=== PATIENT | female | born 1990 | race African-American/Black ===

== ENCOUNTER 2016-10-24 10:31 | Emergency (ER) | payer OTHER ==
[2016-10-24 10:42] VITALS: BMI 31.3
[2016-10-24] MEDS ORDERED: FLUORESCEIN NA 1 EA STRIP ONE (11:06)
[2016-10-24] MEDS ORDERED: TETRACAINE 0.5% OPHTH SOLN 2 ML BOTTLE ONE (11:07)
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
[2016-10-24] MEDS ORDERED: ACETAMINOPHEN 325 MG TABLET (FP) ONE (11:55)
[2016-10-24 13:14] LABS: HIV 1 & 2 AB NEGATIVE; HIV 1 AGp24 NEGATIVE
[2016-10-24 14:21] VITALS: BP 132/78; PULSE 72; TEMP 98.2
== END 2016-10-24 14:21 | disposition home or self-care (01) ==
LOC: JER 10:31 → JERFT 10:31 → JER 14:21
DX: S09.8XXA Other specified injuries of head, initial encounter (principal); S05.12XA Contusion of eyeball and orbital tissues, left eye, initial encounter; H11.32 Conjunctival hemorrhage, left eye; Y04.2XXA Assault by strike against or bumped into by another person, initial encounter; Y93.89 Activity, other specified; Y92.038 Other place in apartment as the place of occurrence of the external cause; Y07.03 Male partner, perpetrator of maltreatment and neglect
CPT/HCPCS: 36415; 70450-TC; 70486-TC; 84703; 87389; 87491; 87591; 99283-25

== ENCOUNTER 2017-04-10 10:28 | Inpatient (IN) | payer SELFPAY ==
--- NOTE | 2017-04-10 10:40 | PDOC ---
History of Present Illness - General History Source: Patient Exam Limitations: No Limitations - History of Present Illness Initial Comments: CHIEF COMPLAINT: 27 y/o , unknown if currently BIB EMS c/o vaginal bleeding and strong abdominal cramping since this morning. HISTORY OF PRESENT ILLNESS: The patient admits she has very irregular periods, and states her period hasn't been "normal" for at least 1 year. She states that she did not have a menstrual cycle in February but did have 3 days of spotting in March. She took a test in late February which came back negative. She states she has never carried a to term with her last 2 being delivered at 6 months gestation. She states this morning she woke up with some abdominal pain that feels like contractions. At some point she stood up and felt a "gush" of liquid discharge. She states she has passed multiple clots and is having pain about every 5 minutes. She denies f/c, n/v/d, CP, SOB, hematuria, dysuria. Vital signs on arrival are within normal limits. REVIEW OF SYSTEMS: GENERAL/CONSTITUTIONAL: No fever/chills. No weakness. No weight change. HEAD, EYES, EARS, NOSE AND THROAT: No change in vision. No ear pain or discharge. No sore throat. CARDIOVASCULAR: No chest pain or shortness of breath. RESPIRATORY: No cough, wheezing, or hemoptysis. GASTROINTESTINAL: +abdominal pain. No nausea, vomiting, diarrhea. +vaginal discharge. GENITOURINARY: No dysuria, frequency, or change in urination. MUSCULOSKELETAL: No joint or muscle swelling or pain. No neck or back pain. SKIN: No rash or easy bruising. NEUROLOGIC: No headache, vertigo, loss of consciousness, or loss of sensation. PHYSICAL EXAM: GENERAL: The patient is awake, alert, and fully oriented, in intermittent pain. HEAD: Normal with no signs of trauma. ENT: Pupils equal, round and reactive to light, extraocular movements intact, sclera anicteric, conjunctiva clear. Neck supple. LUNGS: Clear to auscultation bilaterally. Normal excursion. No respiratory distress or use of accessory muscles. CV: RRR, S1/S2, no MRG. Cap refill < 2 sec. ABDOMEN: Soft, obese, TTP of lower abdominal and pelvic region. No rebound, guarding or rigidity. VAGINAL: Copious blood in the vaginal vault with active passage of 3 very large clots. Os cannot be visualized secondary to blood. There is clear liquid discharge on the floor and around the patient. EXTREMITIES: Normal range of motion, no edema. NEUROLOGICAL: Normal speech, normal gait. CN II-XII grossly intact. PSYCH: Normal mood, normal affect. SKIN: Warm, dry, normal turgor, no rashes or lesions noted. <Janae Medeiros - Last Filed: 04/10/17 17:54> <Siobhan Noe - Last Filed: 04/16/17 11:41> - General Chief Complaint: Pain Stated Complaint: PAIN Time Seen by Provider: 04/10/17 10:34 Past History - Past Medical History Anemia: Yes Asthma: No Cancer: No Cardiac Disorders: No Diabetes: No HTN: No Suicide Attempt (Hx): No Seizures: No Thyroid Disease: No - Reproductive History (#): 4 Para: 4 Therapeutic (s) & number: No Spontaneous : 0 - Immunization History Immunization Up to Date: Yes - Psycho/Social/Smoking Cessation Hx Anxiety: No Suicidal Ideation: No Smoking History: Current some day smoker Have you smoked in the past 12 months: Yes Number of Cigarettes Smoked Daily: 5 Hx Alcohol Use: No Drug/Substance Use Hx: No Substance Use Type: None Hx Substance Use Treatment: No <Janae Medeiros - Last Filed: 04/10/17 17:54> <Siobhan Noe - Last Filed: 04/16/17 11:41> - Past Medical History Allergies/Adverse Reactions: Allergies Allergy/AdvReac Type Severity Reaction Status Date / Time ibuprofen Allergy Intermediate Swelling Verified 10/24/16 10:35 peach [[place]] Allergy Intermediate Difficulty Verified 10/24/16 10:35 Breathing peanut Allergy Intermediate Swelling Verified 10/24/16 10:35 Home Medications: Ambulatory Orders NK [No Known Home Medication] 04/10/17 Amoxicillin/Potassium Clav [Augmentin 875-125 Tablet] 1 each PO BID #0 tablet *Physical Exam - Vital Signs Last Vital Signs Temp Pulse Resp BP Pulse Ox 97.7 F 69 20 136/85 99 04/14/17 10:00 04/14/17 10:00 04/14/17 10:00 04/14/17 10:00 04/14/17 09:00 <Siobhan Noe - Last Filed: 04/16/17 11:41> ED Treatment Course - LABORATORY CBC & Chemistry Diagram: 04/10/17 11:05 04/10/17 11:05 <IsiJanae lara - Last Filed: 04/10/17 17:54> - LABORATORY CBC & Chemistry Diagram: 04/14/17 10:30 04/10/17 11:05 - ADDITIONAL ORDERS Additional order review: 04/10/17 11:05 RBC 3.63 MCV 83.5 MCHC 31.6 L RDW 20.2 H D MPV 8.5 Neutrophils % 79.0 D Lymphocytes % 17.0 D Monocytes % 4.0 - Medications Given in the ED: ED Medications Discontinued Medications Generic Name Dose Route Start Last Admin Trade Name Freq PRN Reason Stop Dose Admin Acetaminophen 1,000 mg 04/10/17 13:38 04/10/17 13:48 Ofirmev Injection - IVPB 04/10/17 13:39 1,000 mg ONCE ONE Administration Acetaminophen 1,000 mg 04/10/17 18:35 04/10/17 19:09 Ofirmev Injection - IVPB 04/10/17 18:36 1,000 mg ONCE ONE Administration Acetaminophen 650 mg 04/10/17 19:25 04/14/17 08:21 Tylenol - PO 650 mg Q3H PRN Administration PAIN Citric Acid/Sodium Citrate 30 ml 04/14/17 08:56 04/14/17 09:26 Bicitra Oral Solution - PO 04/14/17 08:57 30 ml ONCE ONE Administration Fentanyl 50 mcg 04/10/17 19:27 04/10/17 19:42 Sublimaze Injection - IVPUSH 04/13/17 19:28 50 mcg [id number] PRN Administration PAIN Ferrous Sulfate 325 mg 04/13/17 15:15 04/14/17 09:21 Feosol - PO 325 mg DAILY BRISEIDA Administration Sodium Chloride 1,000 mls @ 1,000 mls/hr 04/10/17 11:12 04/10/17 11:27 Normal Saline - IV 04/10/17 12:11 1,000 mls/hr ASDIR STA Administration Sodium Chloride 1,000 mls @ 1,000 mls/hr 04/10/17 11:22 04/10/17 11:27 Normal Saline - IV 04/10/17 12:21 1,000 mls/hr ASDIR STA Administration Oxytocin/Lactated Ringer's 250 mls @ 1 mls/hr 04/10/17 13:30 04/11/17 15:08 Lactated Ringer+ 15 Units Pitocin IV Not Given ASDIR BRISEIDA Protocol 0.06 UNIT/HR Sodium Chloride 1,000 mls @ 1,000 mls/hr 04/10/17 13:28 04/10/17 13:48 Normal Saline - IV 04/10/17 14:27 1,000 mls/hr ASDIR STA Administration Cefazolin Sodium 1 gm/ 50 mls @ 100 mls/hr 04/10/17 13:38 04/10/17 13:59 Dextrose IVPB 04/10/17 14:07 100 mls/hr ONCE ONE Administration Vancomycin HCl 1,000 mg/ 250 mls @ 250 mls/hr 04/10/17 14:21 04/10/17 16:08 Dextrose IVPB 04/10/17 15:20 250 mls/hr ONCE ONE Administration Protocol Clindamycin Phosphate 50 mls @ 100 mls/hr 04/10/17 20:30 04/11/17 10:08 Cleocin 900 Mg Premix Ivpb - IVPB 100 mls/hr Q8H-IV BRISEIDA Administration Dextrose/Lactated Ringer's 1,000 mls @ 125 mls/hr 04/10/17 19:30 04/10/17 21:05 Pitocin 20 Units In D5-Lr - IV 125 mls/hr ASDIR BRISEIDA Administration Gentamicin Sulfate 500 mg/ 262.5 mls @ 112.5 mls/hr 04/10/17 21:00 04/10/17 22: 24 Dextrose IVPB 112.5 mls/hr Q24H BRISEIDA Administration Piperacillin Sod/Tazobactam 100 mls @ 200 mls/hr 04/11/17 13:00 04/14/17 08:52 Sod 4.5 gm/ Dextrose IVPB 200 mls/hr Q6H-IV BRISEIDA Administration Protocol Lactated Ringer's 1,000 mls @ 75 mls/hr 04/11/17 17:30 04/12/17 18:34 Lactated Ringers Solution IV Not Given ASDIR BRISEIDA Methylergonovine Maleate 0.2 mg 04/10/17 13:40 04/10/17 13:49 Methergine Injection - IM 04/10/17 13:41 0.2 mg ONCE ONE Administration Morphine Sulfate 4 mg 04/10/17 11:14 04/10/17 11:27 Morphine Injection - IVPUSH 04/10/17 11:15 4 mg ONCE ONE Administration Sodium Chloride 10 ml 04/12/17 18:08 04/12/17 18:00 Saline Lock Flush IVPUSH 10 ml PRN PRN Administration <Siobhan Noe - Last Filed: 04/16/17 11:41> Medical Decision Making - Medical Decision Making A/P: 27 y/o afebrile female most likely miscarrying. Plan is as follows: 1. Labs 2. IV fluids 3. IV morphine Bedside ultrasound performed shows no gestational sac or fetus. Patient noted to have elevated WBC count of 20, beta of 15,000 and H&H of 9.6/ 30.3. A second line was started with a 2nd bag of fluids. The patient had normal vital signs prior to going to ultrasound and admitted her pain was better with morphine. After returning from ultrasound the patient was found to be febrile, tachycardic and hypotensive. Possibly septic . PRBCs, IV tylenol, IV ancef, IV pitocin with LR and IM Methergine ordered. Paged [facility] to ER. Mohsen came down, spoke to the patient, found out she is a [facility] patient and left the ER, stating [facility] would have to see the patient. Paged Dr. Lynn stat on her cell phone twice and her office phone twice. No call back after 45 minutes. After about [address] Connolly to evaluate the patient since Dr. Lynn has not responded. Dr. Connolly returned to the ER and evaluated the patient. He was able to get Dr. Lynn on the phone. Spoke with Dr. Lynn and she states she hasn't seen the patient since last year. She was hesitant to come see the patient but eventually agrees to evaluate the patient in 1 hour (spoke to her at 2:20pm). Will admit to [facility] for septic . Ordered IV vanc. Informed the patient of what's going on and the plan for admission. <Janae Medeiros - Last Filed: 04/10/17 17:54> *DC/Admit/Observation/Transfer - Discharge Dispostion Admit: Yes <Janae Medeiros - Last Filed: 04/10/17 17:54> - Attestations Physician Attestion: I reviewed the case with the mid-level practitioner and agree with the mid- level practitioner's assessment, diagnosis and disposition. <Siobhan Noe - Last Filed: 04/16/17 11:41> Diagnosis at time of Disposition: with sepsis - Discharge Dispostion Disposition: HOME - Prescriptions - Referrals
[2017-04-10] MEDS ORDERED: SODIUM CHLORIDE 1,000 ML IV STA ×3 (11:12→13:28)
[2017-04-10] MEDS ORDERED: morphine CARPU-JECT 4 MG/1 ML DISP.SYRIN IVPUSH ONE (11:14)
[2017-04-10] MEDS ORDERED: morphine CARPU-JECT 4 MG/1 ML DISP.SYRIN ONE (11:17)
[2017-04-10 11:25] LABS: MCH 26.4 pg (25.7-33.7); MCHC 31.6 g/dl (32.0-36.0); MEAN CELL VOLUME 83.5 fl (80-96); MEAN PLT VOLUME 8.5 fl (7.5-11.1); PLATELET COUNT 179 K/MM3 (134-434); RDW 20.2 % (11.6-15.6); WHITE BLOOD COUNT 20.5 K/mm3 (4.0-10.0)
[2017-04-10 11:48] LABS: ANION GAP 9 (8-16); BILIRUBIN,TOTAL 0.3 mg/dL (0.2-1.0); CALCIUM 8.2 mg/dL (8.5-10.1); CO2 23 mmol/L (21-32); CREATININE 0.7 mg/dL (0.55-1.02); GLUCOSE,RANDOM 107 mg/dL (74-106); SGOT/AST 35 U/L (15-37); SGPT/ALT 41 U/L (12-78); TOT PROT 6.5 g/dl (6.4-8.2)
[2017-04-10 12:04] LABS: ALK PHOS 73 U/L (45-117)
[2017-04-10] MEDS ORDERED: ACETAMINOPHEN 1000 MG/100 ML VIAL (NON FORMULARY) IVPB ONE ×2 (13:38→18:35)
[2017-04-10] MEDS ORDERED: CEFAZOLIN 1 GM in DEXTROSE 5%-WATER - 50 ML IVPB ONE (13:38)
[2017-04-10] MEDS ORDERED: ACETAMINOPHEN INJECTION 100 ML IVPB ONE ×2 (13:40→18:26)
[2017-04-10] MEDS ORDERED: METHYLERGONOVINE MALEATE 0.2 MG/1 ML AMP IM ONE (13:40)
[2017-04-10] MEDS ORDERED: CEFAZOLIN (PRE-DOCKED) 50 ML IVPB ONE (13:41)
[2017-04-10] MEDS: OXYTOCIN 15 UNITS/ LR 250 ML 250 ML IV SCH (14:14)
[2017-04-10] MEDS ORDERED: VANCOMYCIN 1,000 MG in DEXTROSE 5%-WATER - 250 ML IVPB ONE (14:21)
[2017-04-10 15:08] LABS: PLATELET ESTIMATE ADEQUATE (NORMAL)
[2017-04-10 15:23] VITALS: BMI 38.4
[2017-04-10] MEDS ORDERED: VANCOMYCIN 1 GRAM (PRE-DOCKED) 250 ML IVPB ONE (16:07)
--- NOTE | 2017-04-10 18:40 | HP ---
Admitting History and Physical - Admission Chief Complaint: Vaginal bleeding / Abdominal pain History of Present Illness: 27 yo LMP seen in ER for vaginal bleeding and abdominal pain associated with positive . Upon arrival she was hypotensive, febrile and white count was elevated. She received blood transfusion in the ER. History Source: Patient Limitations to Obtaining History: No Limitations - Past Medical History Gastrointestinal: Yes: Other (vomitting) ...LMP: 02/14/17 ...: Yes Psych: Yes: Anxiety, Depression - Past Surgical History Past Surgical History: Yes: - Smoking History Smoking history: Current some day smoker Have you smoked in the past 12 months: Yes Aproximately how many cigarettes per day: 5 - Alcohol/Substance Use Hx Alcohol Use: No History of Substance Use: reports: Marijuana (pt states quit 6 months ago) Home Medications - Allergies Allergies/Adverse Reactions: Allergies Allergy/AdvReac Type Severity Reaction Status Date / Time ibuprofen Allergy Intermediate Swelling Verified 10/24/16 10:35 peach [[place]] Allergy Intermediate Difficulty Verified 10/24/16 10:35 Breathing peanut Allergy Intermediate Swelling Verified 10/24/16 10:35 - Home Medications Home Medications: Ambulatory Orders NK [No Known Home Medication] 04/10/17 Review of Systems - Review of Systems Constitutional: reports: Chills, Fever Eyes: reports: No Symptoms HENT: reports: No Symptoms Neck: reports: No Symptoms Cardiovascular: reports: No Symptoms Respiratory: reports: No Symptoms Gastrointestinal: reports: No Symptoms Genitourinary: reports: Pain, Vaginal Bleeding Breasts: reports: No Symptoms Reported Psychiatric: reports: Depression Pain Intensity: 6 Physical Examination Vital Signs: Vital Signs Temperature 99.8 F H 04/10/17 16:30 Pulse Rate 114 H 04/10/17 16:30 Respiratory Rate 22 04/10/17 16:30 Blood Pressure 93/39 04/10/17 16:30 O2 Sat by Pulse Oximetry (%) 100 04/10/17 15:30 Constitutional: Yes: Anxious, Mild Distress Neck: Yes: Supple, Trachea Midline Cardiovascular: Yes: Regular Rate and Rhythm Respiratory: Yes: Regular Gastrointestinal: Yes: Normal Bowel Sounds Neurological: Yes: Alert, Oriented ...Motor Strength: WNL Assessment/Plan Septic Pre op for suction D&C Consent signed Anesthesia to see patient
[2017-04-10] MEDS ORDERED: LIDOCAINE HCL/PF 2% SDV 5ML VIAL ONE (18:52)
[2017-04-10] MEDS ORDERED: PROPOFOL 20 ML ONE (18:53)
[2017-04-10] MEDS ORDERED: MIDAZOLAM HCL 2 MG/2 ML SINGLE DOSE VIAL ONE ×2 (18:53)
[2017-04-10] MEDS ORDERED: BENZOCAINE 28 GM HEMORRHOIDAL OINTMENT TP PRN (19:25)
[2017-04-10] MEDS ORDERED: BISACODYL 10 MG SUPP.RECT RC PRN (19:25)
[2017-04-10] MEDS ORDERED: BENZOCAINE 20% 57 GM BOTTLE TP PRN (19:25)
[2017-04-10] MEDS ORDERED: METHYLERGONOVINE MALEATE 0.2 MG/1 ML AMP IM PRN (19:25)
[2017-04-10] MEDS ORDERED: WITCH HAZEL 50% (TUCKS) 40 PAD/JAR PAD TP PRN (19:25)
[2017-04-10] MEDS ORDERED: IBUPROFEN 600 MG TABLET (FP) PO PRN (19:25)
[2017-04-10] MEDS ORDERED: oxyCODONE HCL 5 MG TABLET PO PRN (19:27)
[2017-04-10] MEDS ORDERED: ONDANSETRON 4 MG/2 ML VIAL IVPUSH PRN (19:27)
[2017-04-10] MEDS ORDERED: PROMETHAZINE HCL 25 MG/1 ML VIAL IVPUSH PRN (19:27)
[2017-04-10] MEDS ORDERED: GENTAMICIN SO4 *PEDIATRIC* 20 MG/2 ML VIAL IVPB SCH (19:30)
[2017-04-10] MEDS ORDERED: D5W-LR W/ 20 UNITS OXYTOCIN 1,000 ML IV SCH (19:30)
[2017-04-10] MEDS ORDERED: WATER IVPB SCH (21:00)
[2017-04-10] MEDS ORDERED: GENTAMICIN IVPB SCH (21:00)
[2017-04-10] MEDS ORDERED: DEXTROSE 5% IVPB SCH (21:00)
[2017-04-10] MEDS: CLINDAMYCIN 900 MG PREMIX IVPB 50 ML IVPB SCH (21:23)
[2017-04-11] MEDS: CLINDAMYCIN 900 MG PREMIX IVPB 50 ML IVPB SCH ×2 (02:55→10:08)
[2017-04-11] MEDS: ACETAMINOPHEN 325 MG TABLET (FP) PO PRN ×3 (05:21→21:52)
[2017-04-11 07:47] LABS: MCH 26.6 pg (25.7-33.7); MCHC 32.6 g/dl (32.0-36.0); MEAN CELL VOLUME 81.6 fl (80-96); MEAN PLT VOLUME 9.1 fl (7.5-11.1); PLATELET COUNT 93 K/MM3 (134-434); RDW 18.8 % (11.6-15.6)
[2017-04-11 07:53] LABS: WHITE BLOOD COUNT 30.1 K/mm3 (4.0-10.0)
--- NOTE | 2017-04-11 07:55 | PN ---
Progress Note (SOAP) - Subjective Chief Complaint: Pt desire diet malaise mild abd pain - Current Medications Current Medications: Active Medications Acetaminophen (Tylenol -) 650 mg PO Q3H PRN PRN Reason: PAIN Last Admin: 04/11/17 05:21 Dose: 650 mg Benzocaine (Americaine Ointment -) 1 applic TP PRN PRN PRN Reason: PAIN Benzocaine (Americaine 20% [place] -) 1 spray TP PRN PRN PRN Reason: PAIN Bisacodyl (Dulcolax Suppository -) 10 mg RC PRN PRN PRN Reason: CONSTIPATION Oxytocin/Lactated Ringer's (Lactated Ringer+ 15 Units Pitocin) 250 mls @ 1 mls/ hr IV ASDIR BRISEIDA; 0.06 UNIT/HR PRN Reason: Protocol Last Admin: 04/10/17 14:14 Dose: 1 mls/hr Clindamycin Phosphate (Cleocin 900 Mg Premix Ivpb -) 50 mls @ 100 mls/hr IVPB Q8H-IV BRISEIDA Last Admin: 04/11/17 02:55 Dose: 100 mls/hr Dextrose/Lactated Ringer's (Pitocin 20 Units In D5-Lr -) 1,000 mls @ 125 mls/ hr IV ASDIR BRISEIDA Last Admin: 04/10/17 21:05 Dose: 125 mls/hr Gentamicin Sulfate 500 mg/ (Dextrose) 262.5 mls @ 112.5 mls/hr IVPB Q24H BRISEIDA Last Admin: 04/10/17 22:24 Dose: 112.5 mls/hr Ibuprofen (Motrin -) 600 mg PO Q4H PRN PRN Reason: PAIN Methylergonovine Maleate (Methergine Injection -) 0.2 mg IM Q4H PRN PRN Reason: EXCESSIVE BLEEDING (L&D) Oxycodone HCl (Roxicodone -) 10 mg PO Q4H PRN PRN Reason: SEVERE PAIN Stop: 04/11/17 19:26 Senna/Docusate Sodium (Pericolace -) 2 tablet PO HS PRN PRN Reason: CONSTIPATION Witch Sarah/Glycerin (Tucks Pads -) 1 pad TP PRN PRN PRN Reason: PAIN - Objective Vital Signs: Vital Signs Temperature 98.2 F 04/11/17 04:30 Pulse Rate 90 04/11/17 04:30 Respiratory Rate 20 04/11/17 04:30 Blood Pressure 110/62 04/11/17 04:30 O2 Sat by Pulse Oximetry (%) 100 04/10/17 21:00 Constitutional: Yes: Well Nourished, Anxious, Mild Distress Gastrointestinal: Yes: Soft, Tenderness Extremities: Yes: WNL Problem List - Problems (1) Sepsis Code(s): A41.9 - SEPSIS, UNSPECIFIED ORGANISM (2) with septicemia Code(s): O03.87 - SEPSIS FOLLOWING COMPLETE OR UNSP SPONTANEOUS Assessment/Plan POD1 DC sepsis WBC 31 Plan continue IV antibiotics ID consult due to WBC 31 to change antibiotics
[2017-04-11 08:46] LABS: ANISOCYTOSIS 1+; DOHLE BODIES 1+; HYPOCHROMIA 1+; METAMYELOCYTE 1 % (0-2); MICROCYTOSIS 1+; PLATELET ESTIMATE DECREASED (NORMAL); POLYCHROMASIA 1+; TOXIC GRANULATION 1+
--- NOTE | 2017-04-11 12:10 | PN ---
Progress Note (short form) - Note Progress Note: ID Consult dictated Septic Leukocytosis Thrombocytopenia Await BC Empiric zosyn GC / Chlamydia PCR HIV test
--- NOTE | 2017-04-11 12:25 | PN ---
Progress Note (short form) - Note Progress Note: Pot op day#1.S/P D&C under MAC uneventful.White cell count is high but patient stable otherwise.No any anesthesia related problem.Patient DC from the anesthesia care.
--- NOTE | 2017-04-11 13:28 | CONS ---
DATE OF CONSULTATION: DATE OF DICTATION: 04/11/2017 HISTORY OF PRESENT ILLNESS: The patient is a 27-year-old female evaluated for septic . The patient was admitted to the hospital on April 10, 2017, with worsening abdominal cramping and vaginal bleeding. She was seen in the emergency room, where a sonogram showed blood and blood clots in the endometrial cavity. test was positive. She was noted to have a markedly elevated white blood cell count and anemia. She required a transfusion of packed red blood cells in the emergency room. She was empirically treated with clindamycin and gentamicin. Patient was taken to the OR where a dilatation and curettage was performed. Her hospital course has been complicated by fever, tachycardia, hypotension, leukocytosis, and thrombocytopenia. At the present time, she is awake and alert. She does complain of some mild lower abdominal cramping and continued vaginal bleeding, although this has improved. She denies any shaking chills, labored breathing, cough, sputum production, vomiting, or diarrhea. Patient denies history of sexually transmitted diseases and reports being HIV tested on a regular basis. PAST MEDICAL HISTORY: Essentially negative. ALLERGIES: To IBUPROFEN. MEDICATIONS: No home medicines. SOCIAL HISTORY: She lives at home with family. Positive tobacco. Negative history of alcohol or illicit drug use. Patient states she tested HIV negative in the recent past. SYSTEMS REVIEW: Neurologic: No loss of consciousness, seizure activity, or focal weakness. Cardiac: Negative for chest pain or palpitations. Respiratory: Negative for cough or sputum production. Gastrointestinal: Negative for vomiting or diarrhea. Genitourinary: As per HPI. LABORATORY DATA: White count 30.1 with left shift, hematocrit 23.4, platelet count 93. BUN 9, creatinine 0.7. Urinalysis 9 white cells. Liver enzymes normal. PHYSICAL EXAMINATION: General: She is awake and alert. She is seated in bed. She is eating lunch, in no acute distress. Vital signs: Temperature 97.9, maximum temperature 100.8, blood pressure 100/43, pulse 94 and regular, respirations 18 per minute. HEENT: Sclerae anicteric. Oropharynx negative. Neck: Supple. Heart: Heart sounds S1, S2. Lungs: Clear. Abdomen: Positive bowel sounds. Soft. Mild lower abdominal tenderness to palpation. Extremities: Negative for edema. Negative Homans sign. IMPRESSION: 1. Septic . 2. Sepsis secondary to genitourinary source. 3. Status post dilatation and curettage. 4. Marked leukocytosis with left shift. 5. Thrombocytopenia secondary to sepsis. Blood cultures have been obtained. There is no endometrial culture available. Will obtain urine for GC and chlamydia. Empiric antibiotic coverage with Zosyn 4.5 g IV piggyback every 6 hours, IV fluid hydration, supportive care. HIV testing (patient gives verbal consent). Will follow. Thank you for the kind referral. JESSIE KEARNEY M.D. [id number]
[2017-04-11 14:33] LABS: URINE APPEARANCE CLEAR; URINE BILIRUBIN NEGATIVE (NEGATIVE); URINE BLOOD 2+ (NEGATIVE); URINE COLOR STRAW; URINE GLUCOSE (UA) NEGATIVE (NEGATIVE); URINE KETONE NEGATIVE (NEGATIVE); URINE LEUK ESTERASE NEGATIVE (NEGATIVE); URINE NITRITE NEGATIVE (NEGATIVE); URINE PROTEIN NEGATIVE (NEGATIVE); URINE UROBILINOGEN NEGATIVE mg/dL (0.2-1.0)
[2017-04-11 14:44] LABS: URINE RBC 6 /hpf (0-3); URINE WBC 24 /hpf (3-5)
[2017-04-11] MEDS: OXYTOCIN 15 UNITS/ LR 250 ML 250 ML IV SCH (15:08)
[2017-04-11] MEDS: LACTATED RINGERS SOLUTION 1,000 ML IV SCH (16:15)
[2017-04-11] MEDS: PIPERACILLIN/TAZOB 4.5 GM 4.5 GM in DEXTROSE 5%-WATER - 100 ML IVPB SCH ×2 (16:17→21:49)
[2017-04-11] MEDS ORDERED: SENNOSIDES/DOCUSATE COMBO (SENNA PLUS) TABLET (UD) PO PRN (22:00)
[2017-04-12] MEDS: PIPERACILLIN/TAZOB 4.5 GM 4.5 GM in DEXTROSE 5%-WATER - 100 ML IVPB SCH ×4 (03:59→21:10)
[2017-04-12] MEDS: ACETAMINOPHEN 325 MG TABLET (FP) PO PRN ×2 (04:01→09:10)
--- NOTE | 2017-04-12 07:41 | PN ---
Progress Note, Physician Chief Complaint: Status post suction D&C History of Present Illness: 27 yo Para 4, status post suction D&C for septic , seen and evaluated. She c/o mild abdominal cramps.She's afebrile. She's on IV antibiotics. - Current Medication List Current Medications: Active Medications Acetaminophen (Tylenol -) 650 mg PO Q3H PRN PRN Reason: PAIN Last Admin: 04/12/17 04:01 Dose: 650 mg Benzocaine (Americaine Ointment -) 1 applic TP PRN PRN PRN Reason: PAIN Benzocaine (Americaine 20% [place] -) 1 spray TP PRN PRN PRN Reason: PAIN Bisacodyl (Dulcolax Suppository -) 10 mg RC PRN PRN PRN Reason: CONSTIPATION Piperacillin Sod/Tazobactam (Sod 4.5 gm/ Dextrose) 100 mls @ 200 mls/hr IVPB Q6H-IV BRISEIDA PRN Reason: Protocol Last Admin: 04/12/17 03:59 Dose: 200 mls/hr Lactated Ringer's (Lactated Ringers Solution) 1,000 mls @ 75 mls/hr IV ASDIR BRISEIDA Last Admin: 04/11/17 16:15 Dose: 75 mls/hr Methylergonovine Maleate (Methergine Injection -) 0.2 mg IM Q4H PRN PRN Reason: EXCESSIVE BLEEDING (L&D) Senna/Docusate Sodium (Pericolace -) 2 tablet PO HS PRN PRN Reason: CONSTIPATION Witch Sarah/Glycerin (Tucks Pads -) 1 pad TP PRN PRN PRN Reason: PAIN - Objective Vital Signs: Vital Signs Temperature 98.7 F 04/12/17 06:00 Pulse Rate 86 04/12/17 06:00 Respiratory Rate 18 04/12/17 06:00 Blood Pressure 109/68 04/12/17 06:00 O2 Sat by Pulse Oximetry (%) 100 04/11/17 21:00 Constitutional: Yes: Calm Eyes: Yes: Conjunctiva Clear HENT: Yes: Atraumatic Neck: Yes: Supple, Trachea Midline Cardiovascular: Yes: Regular Rate and Rhythm Respiratory: Yes: Regular, CTA Bilaterally Gastrointestinal: Yes: Normal Bowel Sounds Genitourinary: Yes: Vaginal Bleeding Extremities: Yes: WNL Neurological: Yes: Alert, Oriented ...Motor Strength: WNL Psychiatric: Yes: Alert, Oriented Labs: CBC, BMP 04/11/17 07:00 Assessment/Plan Septic Status post suction D&C Continue IV antibiotics F/U blood culture Continue management as per ID
--- NOTE | 2017-04-12 10:03 | OP ---
DATE OF OPERATION: 04/10/2017 PREOPERATIVE DIAGNOSIS: Septic . POSTOPERATIVE DIAGNOSIS: Septic . PROCEDURE: Suction dilatation and curettage. SURGEON: Samantha Lynn MD ANESTHESIA: General. COMPLICATIONS: Sepsis. DESCRIPTION OF PROCEDURE: Patient was taken to the operating room where general anesthesia was administered. Patient was then placed in lithotomy position. She was then prepped and draped in proper sterile fashion. A weighted speculum was placed in the vagina. The anterior lip of the cervix was grasped with a single-tooth tenaculum. A 10-mm suction curette was then gently introduced into the uterine cavity. The suction curette was rotated to clear the uterus of all products of conception. The cervical os was found to be open with significant amount of products of conception retrieved. There was a lot of bleeding noted. The curette was reintroduced to clear the uterus of all products of conception. Hemostasis was obtained with the aid of additional dosage of Pitocin. Then, when finished, the instruments were removed. The patient was taken out of lithotomy position. She was taken to PACU in stable condition. PATHOLOGY: Products of conception. Kendal [id number]
[2017-04-12 11:24] LABS: HIV 1 & 2 AB NEGATIVE; HIV 1 AGp24 NEGATIVE
--- NOTE | 2017-04-12 15:04 | PN ---
Progress Note, Physician History of Present Illness: Awake, alert No c/o abdominal pain or vaginal bleeding No fever/ chills Cultures no growth - Current Medication List Current Medications: Active Medications Acetaminophen (Tylenol -) 650 mg PO Q3H PRN PRN Reason: PAIN Last Admin: 04/12/17 09:10 Dose: 650 mg Benzocaine (Americaine Ointment -) 1 applic TP PRN PRN PRN Reason: PAIN Benzocaine (Americaine 20% [place] -) 1 spray TP PRN PRN PRN Reason: PAIN Bisacodyl (Dulcolax Suppository -) 10 mg RC PRN PRN PRN Reason: CONSTIPATION Piperacillin Sod/Tazobactam (Sod 4.5 gm/ Dextrose) 100 mls @ 200 mls/hr IVPB Q6H-IV BRISEIDA PRN Reason: Protocol Last Admin: 04/12/17 09:10 Dose: 200 mls/hr Lactated Ringer's (Lactated Ringers Solution) 1,000 mls @ 75 mls/hr IV ASDIR BRISEIDA Last Admin: 04/11/17 16:15 Dose: 75 mls/hr Methylergonovine Maleate (Methergine Injection -) 0.2 mg IM Q4H PRN PRN Reason: EXCESSIVE BLEEDING (L&D) Senna/Docusate Sodium (Pericolace -) 2 tablet PO HS PRN PRN Reason: CONSTIPATION Witch Sarah/Glycerin (Tucks Pads -) 1 pad TP PRN PRN PRN Reason: PAIN - Objective Vital Signs: Vital Signs Temperature 98.2 F 04/12/17 14:00 Pulse Rate 86 04/12/17 14:00 Respiratory Rate 18 04/12/17 14:00 Blood Pressure 117/61 04/12/17 14:00 O2 Sat by Pulse Oximetry (%) 100 04/11/17 21:00 Constitutional: Yes: No Distress Eyes: Yes: Conjunctiva Clear Cardiovascular: Yes: Regular Rate and Rhythm, Murmur, S1, S2 Respiratory: Yes: CTA Bilaterally Gastrointestinal: Yes: Normal Bowel Sounds, Soft. No: Tenderness Edema: No Labs: CBC, BMP 04/11/17 07:00 Assessment/Plan Septic Leukocytosis Await cultures Check CBC Continue empiric zosyn
[2017-04-12 15:59] LABS: BASOPHIL 0.1 % (0-2.0); EOSINOPHIL 0.7 % (0-4.5); MCH 26.2 pg (25.7-33.7); MCHC 31.6 g/dl (32.0-36.0); MEAN PLT VOLUME 9.9 fl (7.5-11.1); NEUTROPHILS 88.7 % (42.8-82.8); PLATELET COUNT 137 K/MM3 (134-434); RDW 19.3 % (11.6-15.6); WHITE BLOOD COUNT 26.9 K/mm3 (4.0-10.0)
--- NOTE | 2017-04-12 16:31 | PATH ---
Surgical Pathology Report Patient Name: ALEJANDRA DUTTA Med. Rec. 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 Specimen(s) Received PRODUCTS OF CONCEPTION Clinical History Septic Final Diagnosis PRODUCTS OF CONCEPTION: NO SOMATIC TISSUE IDENTIFIED. IMMATURE PLACENTAL VILLOUS TISSUE WITH FOCI OF ACUTE INFLAMMATION (ACUTE VILLITIS) PRESENT. Comment: Clinical correlations and correlations with microbiology studies are suggested. Electronically Signed Eric Perez M.D. Gross Description Received in formalin labeled "products of conception" is a 20.0 x 14.0 x 2.2 cm aggregate of rodrigues-brown soft tissue fragments. Villous tissue is identified. No definite somatic tissue is identified. A fuels sales representative portion is submitted in one cassette. 04/11/2017 [facility]04/11/2017
[2017-04-12] MEDS ORDERED: NORMAL SALINE FLUSH 0.9% 10 ML SYRINGE IVPUSH PRN (18:08)
[2017-04-12] MEDS: LACTATED RINGERS SOLUTION 1,000 ML IV SCH (18:34)
[2017-04-13] MEDS: PIPERACILLIN/TAZOB 4.5 GM 4.5 GM in DEXTROSE 5%-WATER - 100 ML IVPB SCH ×4 (04:12→20:41)
[2017-04-13 08:29] LABS: BASOPHIL 0.2 % (0-2.0); EOSINOPHIL 1.2 % (0-4.5); MCH 26.7 pg (25.7-33.7); MCHC 32.1 g/dl (32.0-36.0); MEAN CELL VOLUME 83.1 fl (80-96); MEAN PLT VOLUME 9.3 fl (7.5-11.1); NEUTROPHILS 78.5 % (42.8-82.8); PLATELET COUNT 143 K/MM3 (134-434); RDW 19.4 % (11.6-15.6); WHITE BLOOD COUNT 17.4 K/mm3 (4.0-10.0)
[2017-04-13] MEDS: ACETAMINOPHEN 325 MG TABLET (FP) PO PRN ×2 (11:06→23:55)
[2017-04-13 12:38] LABS: ANISOCYTOSIS 2+; HYPOCHROMIA 2+
--- NOTE | 2017-04-13 15:06 | PN ---
Progress Note, Physician History of Present Illness: Feeling better No abdominal pain Minimal vaginal bleeding No fever/ chills WBC improving Cultures negative - Current Medication List Current Medications: Active Medications Acetaminophen (Tylenol -) 650 mg PO Q3H PRN PRN Reason: PAIN Last Admin: 04/13/17 11:06 Dose: 650 mg Benzocaine (Americaine Ointment -) 1 applic TP PRN PRN PRN Reason: PAIN Benzocaine (Americaine 20% [place] -) 1 spray TP PRN PRN PRN Reason: PAIN Bisacodyl (Dulcolax Suppository -) 10 mg RC PRN PRN PRN Reason: CONSTIPATION Piperacillin Sod/Tazobactam (Sod 4.5 gm/ Dextrose) 100 mls @ 200 mls/hr IVPB Q6H-IV BRISEIDA PRN Reason: Protocol Last Admin: 04/13/17 14:15 Dose: 200 mls/hr Lactated Ringer's (Lactated Ringers Solution) 1,000 mls @ 75 mls/hr IV ASDIR BRISEIDA Last Admin: 04/12/17 18:34 Dose: Not Given Methylergonovine Maleate (Methergine Injection -) 0.2 mg IM Q4H PRN PRN Reason: EXCESSIVE BLEEDING (L&D) Senna/Docusate Sodium (Pericolace -) 2 tablet PO HS PRN PRN Reason: CONSTIPATION Sodium Chloride (Saline Lock Flush) 10 ml IVPUSH PRN PRN Last Admin: 04/12/17 18:00 Dose: 10 ml Witch Sarah/Glycerin (Tucks Pads -) 1 pad TP PRN PRN PRN Reason: PAIN - Objective Vital Signs: Vital Signs Temperature 100 F H 04/13/17 14:00 Pulse Rate 73 04/13/17 14:00 Respiratory Rate 20 04/13/17 14:00 Blood Pressure 137/81 04/13/17 14:00 O2 Sat by Pulse Oximetry (%) 100 04/11/17 21:00 Constitutional: Yes: No Distress Cardiovascular: Yes: Regular Rate and Rhythm, S1, S2 Respiratory: Yes: CTA Bilaterally Gastrointestinal: Yes: Soft. No: Tenderness Edema: No Labs: CBC, BMP 04/13/17 07:00 Assessment/Plan Septic Leukocytosis- improved Check CBC am Continue empiric zosyn If stable, CBC improved, switch to po antibiotics am Fe supplement
[2017-04-13] MEDS: FERROUS SO4 325 MG TABLET (FP) PO SCH (15:21)
[2017-04-14] MEDS: PIPERACILLIN/TAZOB 4.5 GM 4.5 GM in DEXTROSE 5%-WATER - 100 ML IVPB SCH ×2 (02:33→08:52)
[2017-04-14] MEDS: ACETAMINOPHEN 325 MG TABLET (FP) PO PRN (08:21)
--- NOTE | 2017-04-14 08:55 | PN ---
Progress Note (SOAP) - Subjective Chief Complaint: Pt with slight headache - improved after tyleno pt with gas pain - Current Medications Current Medications: Active Medications Acetaminophen (Tylenol -) 650 mg PO Q3H PRN PRN Reason: PAIN Last Admin: 04/14/17 08:21 Dose: 650 mg Benzocaine (Americaine Ointment -) 1 applic TP PRN PRN PRN Reason: PAIN Benzocaine (Americaine 20% [place] -) 1 spray TP PRN PRN PRN Reason: PAIN Bisacodyl (Dulcolax Suppository -) 10 mg RC PRN PRN PRN Reason: CONSTIPATION Ferrous Sulfate (Feosol -) 325 mg PO DAILY BRISEIDA Last Admin: 04/13/17 15:21 Dose: 325 mg Piperacillin Sod/Tazobactam (Sod 4.5 gm/ Dextrose) 100 mls @ 200 mls/hr IVPB Q6H-IV BRISEIDA PRN Reason: Protocol Last Admin: 04/14/17 08:52 Dose: 200 mls/hr Lactated Ringer's (Lactated Ringers Solution) 1,000 mls @ 75 mls/hr IV ASDIR BRISEIDA Last Admin: 04/12/17 18:34 Dose: Not Given Methylergonovine Maleate (Methergine Injection -) 0.2 mg IM Q4H PRN PRN Reason: EXCESSIVE BLEEDING (L&D) Senna/Docusate Sodium (Pericolace -) 2 tablet PO HS PRN PRN Reason: CONSTIPATION Sodium Chloride (Saline Lock Flush) 10 ml IVPUSH PRN PRN Last Admin: 04/12/17 18:00 Dose: 10 ml Witch Sarah/Glycerin (Tucks Pads -) 1 pad TP PRN PRN PRN Reason: PAIN - Objective Vital Signs: Vital Signs Temperature 98.9 F 04/14/17 02:38 Pulse Rate 66 04/14/17 02:38 Respiratory Rate 18 04/14/17 02:38 Blood Pressure 129/74 04/14/17 02:38 O2 Sat by Pulse Oximetry (%) 100 04/11/17 21:00 Constitutional: Yes: Well Nourished, No Distress, Calm Gastrointestinal: Yes: WNL, Soft Musculoskeletal: Yes: WNL Extremities: Yes: WNL Labs Lab Results: CBC, BMP 04/13/17 07:00 Problem List - Problems (1) Sepsis Code(s): A41.9 - SEPSIS, UNSPECIFIED ORGANISM (2) with septicemia Code(s): O03.87 - SEPSIS FOLLOWING COMPLETE OR UNSP SPONTANEOUS Assessment/Plan POD 3 DC sepsis - improving Plan continue IV antibiotics until WBC may change to po and DC home ID consult appreciated
[2017-04-14] MEDS ORDERED: CITRIC ACID/SODIUM CITRATE 30 ML UNIT-DOSE CUP PO ONE (08:56)
[2017-04-14] MEDS: FERROUS SO4 325 MG TABLET (FP) PO SCH (09:21)
[2017-04-14 10:51] LABS: MCH 26.6 pg (25.7-33.7); MEAN CELL VOLUME 83.2 fl (80-96); MEAN PLT VOLUME 8.7 fl (7.5-11.1); PLATELET COUNT 176 K/MM3 (134-434); RDW 19.2 % (11.6-15.6); WHITE BLOOD COUNT 12.1 K/mm3 (4.0-10.0)
--- NOTE | 2017-04-14 12:03 | PN ---
Progress Note, Physician History of Present Illness: No complaints No abdominal pain or vaginal bleeding No F/C WBC down - Current Medication List Current Medications: Active Medications Acetaminophen (Tylenol -) 650 mg PO Q3H PRN PRN Reason: PAIN Last Admin: 04/14/17 08:21 Dose: 650 mg Benzocaine (Americaine Ointment -) 1 applic TP PRN PRN PRN Reason: PAIN Benzocaine (Americaine 20% [place] -) 1 spray TP PRN PRN PRN Reason: PAIN Bisacodyl (Dulcolax Suppository -) 10 mg RC PRN PRN PRN Reason: CONSTIPATION Ferrous Sulfate (Feosol -) 325 mg PO DAILY BRISEIDA Last Admin: 04/14/17 09:21 Dose: 325 mg Piperacillin Sod/Tazobactam (Sod 4.5 gm/ Dextrose) 100 mls @ 200 mls/hr IVPB Q6H-IV BRISEIDA PRN Reason: Protocol Last Admin: 04/14/17 08:52 Dose: 200 mls/hr Lactated Ringer's (Lactated Ringers Solution) 1,000 mls @ 75 mls/hr IV ASDIR BRISEIDA Last Admin: 04/12/17 18:34 Dose: Not Given Methylergonovine Maleate (Methergine Injection -) 0.2 mg IM Q4H PRN PRN Reason: EXCESSIVE BLEEDING (L&D) Senna/Docusate Sodium (Pericolace -) 2 tablet PO HS PRN PRN Reason: CONSTIPATION Sodium Chloride (Saline Lock Flush) 10 ml IVPUSH PRN PRN Last Admin: 04/12/17 18:00 Dose: 10 ml Witch Sarah/Glycerin (Tucks Pads -) 1 pad TP PRN PRN PRN Reason: PAIN - Objective Vital Signs: Vital Signs Temperature 98.9 F 04/14/17 02:38 Pulse Rate 66 04/14/17 02:38 Respiratory Rate 18 04/14/17 02:38 Blood Pressure 129/74 04/14/17 02:38 O2 Sat by Pulse Oximetry (%) 100 04/11/17 21:00 Constitutional: Yes: No Distress Eyes: Yes: Conjunctiva Clear Cardiovascular: Yes: Regular Rate and Rhythm, S1, S2 Respiratory: Yes: CTA Bilaterally Gastrointestinal: Yes: Normal Bowel Sounds, Soft. No: Tenderness Labs: CBC, BMP 04/14/17 10:30 Assessment/Plan Septic Leukocytosis- improved Cultures negative switch to po Augmentin 875mg bid x7d Outpatient Communications Engineer follow up
[2017-04-14 12:08] LABS: ANISOCYTOSIS 1+; HYPOCHROMIA 1+; PLATELET COMMENT2 NO CLOTTING DETECTED; PLATELET ESTIMATE ADEQUATE (NORMAL)
[2017-04-14 15:22] VITALS: BP 136/85; PULSE 69; TEMP 97.7
== END 2017-04-14 13:30 | disposition home or self-care (01) | DRG 544 ==
LOC: JER 10:28 → JERBED 14:24 → J3W 16:30
PROVIDERS: ADMIT Obstetrics & Gynecology; ATTEND Obstetrics & Gynecology
PROC: 30233N1 Transfusion of Nonautologous Red Blood Cells into Peripheral Vein, Percutaneous Approach (ICD-10-PCS; 2017-04-10)
PROC: 10D17ZZ Extraction of Products of Conception, Retained, Via Natural or Artificial Opening (ICD-10-PCS; principal; 2017-04-10 19:00)
DX: O03.87 Sepsis following complete or unspecified spontaneous abortion (principal); A41.89 Other specified sepsis; D69.6 Thrombocytopenia, unspecified; D72.828 Other elevated white blood cell count; F41.8 Other specified anxiety disorders; F17.210 Nicotine dependence, cigarettes, uncomplicated
CPT/HCPCS: 36415; 36430; 76817-TC; 80053; 81003; 81015; 84702; 85025; 86850; 86900; 86901; 86922; 87040; 87086; 87389; 88305-TC; 94760; 99285-25; P9038; P9058

== ENCOUNTER 2019-04-01 23:56 | Emergency (ER) | payer OTHER ==
[2019-04-02 00:18] VITALS: BP 145/82; PULSE 100; TEMP 98.5; BMI 32.6
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
[2019-04-02] MEDS ORDERED: ACETAMINOPHEN 500 MG TABLET (FP) PO STA (00:47)
== END 2019-04-02 01:16 | disposition left against medical advice (07) ==
LOC: JER 23:56
DX: S09.93XA Unspecified injury of face, initial encounter (principal); S80.212A Abrasion, left knee, initial encounter; Y04.2XXA Assault by strike against or bumped into by another person, initial encounter; Y93.9 Activity, unspecified; Y92.9 Unspecified place or not applicable
CPT/HCPCS: 99283-25; 99284-25

== ENCOUNTER 2019-08-27 12:34 | Emergency (ER) | payer OTHER ==
[2019-08-27 12:50] VITALS: BMI 33.4
--- NOTE | 2019-08-27 14:36 | PDOC ---
History of Present Illness - General Chief Complaint: Substance Abuse Stated Complaint: DRUG USE Time Seen by Provider: 08/27/19 13:50 History Source: Patient, EMS - History of Present Illness Initial Comments: 08/27/19 16:21 Ms. Ahuja is a 29 y/o woman with no relevant PMH p/w intoxication. History limited by somnolence/intoxication. She reports drinking alcohol today as well as ingesting cocaine. She reports relapsing on alcohol and cocaine approx 5 months ago, and reports depression after losing custody of her daughter. She denies any SI or HI. She denies any other ingestions of drugs or medication. 08/27/19 18:23 On reassessment, she is able to communicate further history. She reports being undomiciled for the last several months. She reports sleeping in a senior care, but that for the last two days she has been outdoors. She reports that her feet have been hurting as her socks have been soaked and cold, and have started to change in color slightly (becoming white in color). She reports binge drinking today, as well as endorsing some cocaine use. She reports interest in detox. She denies any SI or HI. Past History - Past Medical History Allergies/Adverse Reactions: Allergies Allergy/AdvReac Type Severity Reaction Status Date / Time ibuprofen Allergy Intermediate Swelling Verified 08/27/19 12:46 mushroom Allergy Intermediate Swelling Verified 08/27/19 12:46 peach [[place]] Allergy Intermediate Difficulty Verified 08/27/19 12:46 Breathing peanut Allergy Intermediate Swelling Verified 08/27/19 12:46 Home Medications: Ambulatory Orders Oxycodone HCl/Acetaminophen [Percocet 5-325 mg Tablet] 1 tab PO Q6H PRN #12 tablet MDD 4 tabs 03/11/18 Ferrous Sulfate [Iron] 325 mg PO DAILY 04/02/19 Anemia: Yes Asthma: No Cancer: No Cardiac Disorders: No COPD: No Diabetes: No HTN: No Seizures: No Thyroid Disease: No - Reproductive History (#): 4 Para: 4 Therapeutic (s) & number: No Spontaneous : 0 - Immunization History Immunization Up to Date: Yes - Psycho Social/Smoking Cessation Hx Smoking History: Current every day smoker Have you smoked in the past 12 months: No Number of Cigarettes Smoked Daily: 20 Information on smoking cessation initiated: No 'Breaking Loose' booklet given: 04/10/17 Hx Alcohol Use: Yes Drug/Substance Use Hx: Yes (COCAINE) Substance Use Type: None Hx Substance Use Treatment: No Review of Systems - Review of Systems Able to Perform ROS?: No (Intoxication) *Physical Exam - Vital Signs Last Vital Signs Temp Pulse Resp BP Pulse Ox 69 17 139/84 100 08/27/19 12:46 08/27/19 12:46 08/27/19 12:46 08/27/19 12:46 - Physical Exam 08/27/19 19:38 PE: GENERAL: Somnolent but arousable. HEAD: No signs of trauma, normocephalic, atraumatic EYES: PERRLA, EOMI, sclera anicteric, conjunctiva clear ENT: Auricles normal inspection, hearing grossly normal, nares patent, oropharynx clear without exudates. Moist mucosa NECK: Normal ROM, supple, no lymphadenopathy, JVD, or masses LUNGS: No distress, clear to auscultation bilaterally HEART: Regular rate and rhythm, normal S1 and S2, no murmurs, rubs or gallops, peripheral pulses normal and equal bilaterally. ABDOMEN: Soft, nontender, normoactive bowel sounds. No guarding, no rebound. No masses EXTREMITIES : 2+ DP pulses noted bilaterally. Bilateral trench foot noted, alongside foul odor. Normal range of motion, no edema. No clubbing or cyanosis NEUROLOGICAL: No focal sensorimotor deficits SKIN: Except as noted above: Warm, normal turgor, no rashes or lesions noted ED Treatment Course - LABORATORY CBC & Chemistry Diagram: 08/27/19 18:19 08/27/19 18:19 Medical Decision Making - Medical Decision Making 29F w/hx polysubstance use p/w intoxication (EtOH, cocaine), and bilateral trench foot on exam with strong equal pulses. Plan: CBC CMP Serum POC Glucose CT Head Dispo: Pending labs, imaging Discharge to [facility] for detox if stable for discharge --- Glu - [address] head negative for acute process --- 08/27/19 19:29 Repeat POC glucose -101 Plan for discharge to [facility] for detox. Discharge - Discharge Information Problems reviewed: Yes Clinical Impression/Diagnosis: Alcohol use disorder, Cocaine use Trench feet Qualifiers: Encounter type: initial encounter Laterality: unspecified laterality Qualified Code(s): T69.029A - Immersion foot, unspecified foot, initial encounter Condition: Stable Disposition: HOME - Admission No - Follow up/Referral Referrals: Daniel Shah MD [Primary Care Provider] - - Patient Discharge Instructions Patient Printed Discharge Instructions: DI for Foot Pain Additional Instructions: You were seen in the ER for intoxication, and foot pain. Your feet have trench foot - a condition where wet and cold exposure begins to hurt the feet. Please try to keep your feet as dry as possible. Over the counter medication like tylenol can help control the pain while they heal. Please return to the ER if your feet change color, you lose feeling in the feet, if the pain worsens, or if you cannot walk. Please follow up with detox as soon as possible. - Post Discharge Activity
[2019-08-27] MEDS ORDERED: FOLIC ACID INJECTION - 1 MG, THIAMINE HCL 100 MG, MULTIVIT INJECTION ADULT 10 ML in SOD... IVPB ONE (15:47)
--- NOTE | 2019-08-27 16:14 | PDOC ---
Documentation entered by Alexa Saxena SCRIBE, acting as scribe for Ricco Montes MD. Ricco Montes MD: This documentation has been prepared by the Odessa thomas Brenda, SCRIBE, under my direction and personally reviewed by me in its entirety. I confirm that the documentation accurately reflects all work, treatment, procedures, and medical decision making performed by me. Attending Attestation - Resident Resident Name: Bud Avilez - ED Attending Attestation I have performed the following: I have examined & evaluated the patient, The case was reviewed & discussed with the resident, I agree w/resident's findings & plan, Exceptions are as noted - HPI HPI: 08/27/19 16:16 29 F with h/o HTN, cocaine and ETOH abuse, presents to ED intoxicated. Per EMS, pt admitted to using cocaine and ETOH. Pt in ED is unable to contribute any additional history at this time due to intoxication. - Physicial Exam PE: 08/27/19 14:54 GENERAL: somnolent but arousable, in no acute distress. HEAD: No signs of trauma EYES: PERRLA, EOMI, sclera anicteric, conjunctiva clear ENT: Auricles normal inspection, hearing grossly normal, nares patent, oropharynx clear without exudates. Moist mucosa NECK: Nontender, no stepoffs, Normal ROM, supple, no lymphadenopathy, JVD, or masses LUNGS: Breath sounds equal, clear to auscultation bilaterally. No wheezes, and no crackles HEART: Regular rate and rhythm, normal S1 and S2, no murmurs, rubs or gallops ABDOMEN: Soft, nontender, normoactive bowel sounds. No guarding, no rebound. No masses EXTREMITIES: Normal range of motion, no edema. No clubbing or cyanosis. No cords, erythema, or tenderness NEUROLOGICAL: Cranial nerves II through XII intact. 5/5 strength and sensation in all extremities SKIN: Warm, Dry, normal turgor, no rashes or lesions noted. - Medical Decision Making 08/27/19 16:20 29 F presenting to ED intoxicated after reported etoh and cocaine use. Pt without any external signs of trauma. However, because she is unable to provide ROS, will obtain head CT to r/o ICH. - Labs - CT head - Re-eval when clinically sober Pt signed out to Dr. Howell at 4:30PM, pending labs and re-evaluation when clinically sober
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
[2019-08-27 18:56] LABS: BASO % 0.8 % (0-2.0); EOS % 1.3 % (0-4.5); HEMATOCRIT 37.5 % (32.4-45.2); LYMPH % 51.2 % (8-40); MCHC 31.9 g/dl (32.0-36.0); MEAN CELL VOLUME 84.7 fl (80-96); MEAN PLT VOLUME 9.1 fl (7.5-11.1); MONO % 6.5 % (3.8-10.2); NEUT % 40.2 % (42.8-82.8); PLATELET COUNT 405 K/MM3 (134-434); RBC 4.43 M/mm3 (3.60-5.2); RDW 17.9 % (11.6-15.6); WHITE BLOOD COUNT 6.6 K/mm3 (4.0-10.0)
[2019-08-27 19:04] LABS: ALBUMIN 3.7 g/dl (3.4-5.0); BILIRUBIN,TOTAL 0.2 mg/dL (0.2-1); CALCIUM 8.8 mg/dL (8.5-10.1); CREATININE 0.8 mg/dL (0.55-1.3); POTASSIUM 4.5 mmol/L (3.5-5.1); TOT PROT 7.7 g/dl (6.4-8.2)
[2019-08-27 20:45] VITALS: BP 135/70; PULSE 91; TEMP 98
== END 2019-08-27 21:54 | disposition home or self-care (01) ==
LOC: JER 12:34
PROC: 3E033GC Introduction of Other Therapeutic Substance into Peripheral Vein, Percutaneous Approach (ICD-10-PCS; principal; 2019-08-27)
DX: F10.120 Alcohol abuse with intoxication, uncomplicated (principal); F14.10 Cocaine abuse, uncomplicated; T69.022A Immersion foot, left foot, initial encounter; T69.021A Immersion foot, right foot, initial encounter; Y90.9 Presence of alcohol in blood, level not specified; Z88.6 Allergy status to analgesic agent; Z91.018 Allergy to other foods
CPT/HCPCS: 36415; 70450-TC; 80053; 82962; 84703; 85025; 99284-25; J7030

== ENCOUNTER 2020-05-19 13:06 | Emergency (ER) | payer OTHER ==
--- NOTE | 2020-05-19 13:11 | PDOC ---
Rapid Medical Evaluation Chief Complaint: Urinary Problem Time Seen by Provider: 05/19/20 13:07 Medical Evaluation: Allergies Allergy/AdvReac Type Severity Reaction Status Date / Time ibuprofen Allergy Intermediate Swelling Verified 08/27/19 21:05 mushroom Allergy Intermediate Swelling Verified 08/27/19 21:05 peach [[place]] Allergy Intermediate Difficulty Verified 08/27/19 21:05 Breathing peanut Allergy Intermediate Swelling Verified 08/27/19 21:05 05/19/20 13:08 I performed a brief in-person evaluation of this patient. Pt is complaining of foul smelling urine and vaginal discharge for the last few days. She is also complaining of diarrhea for the last 3-4 days and the stool is orange. She denies abdominal pain. She denies any fevers or chills. Pt states she also had a miscarriage two months ago. Pertinent physical exam findings: speaking in full sentences, no reproducible abdominal pain I have ordered the following: cbc, cmp, ua, ucx, urine hcg, saline lock Patient to proceed to ED for further evaluation. Discharge Disposition - Diagnosis Diarrhea, Dysuria - Referrals - Patient Instructions - Post Discharge Activity
[2020-05-19 13:13] VITALS: BP 146/90; PULSE 89; TEMP 98.9; BMI 23.6
--- NOTE | 2020-05-19 13:51 | PDOC ---
History of Present Illness - General Chief Complaint: Urinary Problem Stated Complaint: BURNING URINATION/DIARRHEA Time Seen by Provider: 05/19/20 13:07 History Source: Patient - History of Present Illness Timing/Duration: reports: other Quality: reports: mild Past History - Medical History Allergies/Adverse Reactions: Allergies Allergy/AdvReac Type Severity Reaction Status Date / Time ibuprofen Allergy Intermediate Swelling Verified 08/27/19 21:05 mushroom Allergy Intermediate Swelling Verified 08/27/19 21:05 peach [[place]] Allergy Intermediate Difficulty Verified 08/27/19 21:05 Breathing peanut Allergy Intermediate Swelling Verified 08/27/19 21:05 Home Medications: Ambulatory Orders Ferrous Sulfate [Iron] 325 mg PO DAILY 04/02/19 Melatonin 10 mg PO HS 08/27/19 Mirtazapine [Remeron -] 15 mg PO HS 08/27/19 hydrOXYzine PAMOATE [Vistaril -] 50 mg PO QID PRN 08/27/19 Nitrofurantoin Monohyd/M-Cryst [Macrobid -] 100 mg PO BID #14 capsule 05/19/20 Anemia: Yes Asthma: No Cancer: No Cardiac Disorders: No COPD: No Diabetes: No HTN: No Liver Disease: (HEP C) Seizures: No Thyroid Disease: No - Reproductive History Is Patient Now?: No (#): 4 Para: 4 Therapeutic (s) & number: No Spontaneous : 0 - Immunization History Immunization Up to Date: Yes - Psycho-Social/Smoking History Smoking History: Current every day smoker Have you smoked in the past 12 months: No Number of Cigarettes Smoked Daily: 10 Information on smoking cessation initiated: No 'Breaking Loose' booklet given: 04/10/17 - Substance Abuse Hx (Audit-C & DAST Scrn) How often the patient has a drink containing alcohol: 2-3 times / week Number of drinks the patient has on a typical day: 1 or 2 Score: In Men: 4 or > Positive; In Women: 3 or > Positive: 3 Screen Result (Pos requires Nsg. Audit-10AR): Positive In the last yr the pt used illegal drug/Rx for NonMed reason: Yes Score: Yes response is considered Positive: 1 Screen Result (Positive result requires Nsg. DAST-10): Positive Review of Systems - Review of Systems Constitutional: No: Chills, Fever ABD/GI: Yes: Diarrhea, Nausea, Vomiting. No: Blood Streaked Bowels, Constipated, Abdominal cramping : Yes: Dysuria. No: Discharge, Flank Pain, Hematuria *Physical Exam - Vital Signs Last Vital Signs Temp Pulse Resp BP Pulse Ox 98.9 F 89 16 146/90 100 05/19/20 13:08 05/19/20 13:08 05/19/20 13:08 05/19/20 13:08 05/19/20 13:08 - Physical Exam General Appearance: Yes: Appropriately Dressed. No: Apparent Distress HEENT: positive: Normal Voice Neck: positive: Supple Respiratory/Chest: negative: Respiratory Distress Gastrointestinal/Abdominal: positive: Soft. negative: Tender Musculoskeletal: negative: CVA Tenderness Integumentary: positive: Dry, Warm Neurologic: positive: Fully Oriented, Alert, Normal Mood/Affect Medical Decision Making - Medical Decision Making 05/19/20 13:40 30 yo F, anemia, HLD, here w/ dysuria x 4 days, no hematuria, flank pain, n/v/f/c. Also reports several e/o NB watery diarrhea, abd pain w/ 2 e/o n/v x 3- 4 days, no f/c. No recent travel, sick contacts or antibiotic use see exam Dysuria No e/o pyelo UA Diarrhea No RF for serious dysentery Dc w/ supportive tx PMD f/u as needed 05/19/20 14:41 Pt declines to wait for the UA results, will tx and send ucx. Discharge - Discharge Information Problems reviewed: Yes Clinical Impression/Diagnosis: Dysuria Diarrhea Qualifiers: Diarrhea type: unspecified type Qualified Code(s): R19.7 - Diarrhea, unsp ecified Condition: Good Disposition: HOME - Additional Discharge Information Prescriptions: Nitrofurantoin Monohyd/M-Cryst [Macrobid -] 100 mg PO BID #14 capsule - Follow up/Referral Referrals: Maurizio Dixon MD [Primary Care Provider] - - Patient Discharge Instructions Patient Printed Discharge Instructions: Urinary Tract Infection, Viral Gastroenteritis Additional Instructions: Take medication as directed and return to ED for any worsening of symptoms - Post Discharge Activity
[2020-05-19 14:35] LABS: EPI CELLS 30 /uL (0-25.1); HYALINE CASTS 0 /uL (0-3.1); URINE APPEARANCE CLEAR; URINE BACTERIA 423 /uL (0-1359); URINE BILIRUBIN NEGATIVE (NEGATIVE); URINE COLOR YELLOW; URINE GLUCOSE (UA) NEGATIVE (NEGATIVE); URINE KETONE NEGATIVE (NEGATIVE); URINE LEUK ESTERASE TRACE (NEGATIVE); URINE NITRITE NEGATIVE (NEGATIVE); URINE PROTEIN NEGATIVE (NEGATIVE); URINE RBC 1 /uL (0-23.9); URINE UROBILINOGEN 0.2 mg/dL (0.2-1.0); URINE WBC 45 /uL (0-25.8)
[2020-05-19 14:36] LABS: HCG,QUALITATIVE URINE Negative
== END 2020-05-19 14:38 | disposition home or self-care (01) ==
LOC: JERFT 13:06
DX: R19.7 Diarrhea, unspecified (principal)
CPT/HCPCS: 81003; 84703; 87086; 99283-25

== ENCOUNTER 2021-07-15 12:30 | Emergency (ER) | payer OTHER ==
[2021-07-15 12:36] VITALS: BP 125/87; PULSE 91; TEMP 98.1; BMI 34.9
== END 2021-07-15 14:08 | disposition home or self-care (01) ==
LOC: JER 12:30
DX: M79.7 Fibromyalgia (principal)
CPT/HCPCS: 99283-25

== ENCOUNTER 2023-01-08 23:23 | Observation (INO) | payer OTHER ==
[2023-01-09] MEDS ORDERED: morphine CARPU-JECT 2 MG/1 ML DISP.SYRIN IVPUSH ONE ×2 (01:10→05:05)
[2023-01-09] MEDS ORDERED: ACETAMINOPHEN 1000 MG/100 ML BAG IVPB ONE (01:27)
[2023-01-09] MEDS ORDERED: ACETAMINOPHEN INJECTION 100 ML IVPB ONE (01:33)
[2023-01-09 01:44] LABS: BASO % 0.5 % (0-2.0); EOS % 0.1 % (0-4.5); HEMATOCRIT 26.8 % (32.4-45.2); HEMOGLOBIN 8.4 GM/dL (10.7-15.3); MCH 26.1 pg (25.7-33.7); MCHC 31.2 g/dl (32.0-36.0); MEAN CELL VOLUME 83.8 fl (80-96); MEAN PLT VOLUME 8.3 fl (7.5-11.1); MONO % 4.6 % (3.8-10.2); NEUT % 76.8 % (42.8-82.8); PLATELET COUNT 256 10^3/uL (134-434); RDW 18.4 % (11.6-15.6)
[2023-01-09 01:49] LABS: INR 1.13 (0.83-1.09); PROTHROMBIN TIME (PATIENT) 13.1 SEC (9.7-13.0)
[2023-01-09 01:52] LABS: ACTIVATED PTT 25.2 SECONDS (25.2-36.5)
[2023-01-09 02:07] LABS: POTASSIUM 3.8 mmol/L (3.5-5.1)
[2023-01-09 02:09] LABS: BLOOD UREA NITROGEN 6.6 mg/dL (7-18); CALCIUM 8.8 mg/dL (8.5-10.1)
[2023-01-09 02:10] LABS: ALBUMIN 3.1 g/dl (3.4-5.0)
[2023-01-09 02:12] LABS: CREATININE 0.7 mg/dL (0.55-1.3)
[2023-01-09 02:14] LABS: BILIRUBIN,TOTAL 0.2 mg/dL (0.2-1); TOT PROT 7.3 g/dl (6.4-8.2)
[2023-01-09] MEDS ORDERED: SODIUM CHLORIDE 0.9% 500 ML INFUS.BAG IV ONE (02:16)
[2023-01-09] MEDS ORDERED: LACTATED RINGERS SOLUTION 1000 ML INFUS.BAG IV ONE (02:53)
[2023-01-09 03:12] LABS: SYPHILIS W/ RPR CONF NON-REACTIVE (NONREACTIVE)
[2023-01-09 03:40] LABS: HIV INTERPRETATION NEGATIVE (NEGATIVE)
[2023-01-09 06:54] LABS: BASO % 0.1 % (0-2.0); EOS % 0.3 % (0-4.5); HEMATOCRIT 21.1 % (32.4-45.2); LYMPH % 19.8 % (8-40); MCH 26.3 pg (25.7-33.7); MCHC 31.3 g/dl (32.0-36.0); MEAN PLT VOLUME 8.8 fl (7.5-11.1); MONO % 7.1 % (3.8-10.2); NEUT % 72.7 % (42.8-82.8); PLATELET COUNT 194 10^3/uL (134-434); RBC 2.51 M/mm3 (3.60-5.2); RDW 18.6 % (11.6-15.6); WHITE BLOOD COUNT 11.2 K/mm3 (4.0-10.0)
[2023-01-09 06:56] LABS: HEMOGLOBIN 6.6 GM/dL (10.7-15.3)
[2023-01-09 12:05] VITALS: BMI 34.8
[2023-01-09] MEDS: morphine SULFATE 4 MG/ML VIAL IVPUSH PRN ×2 (13:09→21:59)
[2023-01-09 22:49] VITALS: RESP 20
[2023-01-10] MEDS: morphine SULFATE 4 MG/ML VIAL IVPUSH PRN ×3 (03:05→19:09)
[2023-01-10 08:19] LABS: HEMATOCRIT 28.3 % (32.4-45.2); HEMOGLOBIN 9.8 GM/dL (10.7-15.3); MCH 29.3 pg (25.7-33.7); MCHC 34.8 g/dl (32.0-36.0); MEAN CELL VOLUME 84.2 fl (80-96); MEAN PLT VOLUME 8.8 fl (7.5-11.1); PLATELET COUNT 198 10^3/uL (134-434); RBC 3.36 M/mm3 (3.60-5.2); RDW 16.8 % (11.6-15.6); WHITE BLOOD COUNT 9.1 K/mm3 (4.0-10.0)
[2023-01-10 08:33] LABS: POTASSIUM 4.3 mmol/L (3.5-5.1)
[2023-01-10 08:34] LABS: ALBUMIN 2.6 g/dl (3.4-5.0); BLOOD UREA NITROGEN 6.8 mg/dL (7-18)
[2023-01-10 08:37] LABS: CREATININE 0.6 mg/dL (0.55-1.3)
[2023-01-10 08:40] LABS: BILIRUBIN,TOTAL 0.2 mg/dL (0.2-1); TOT PROT 5.8 g/dl (6.4-8.2)
[2023-01-11] MEDS: morphine SULFATE 4 MG/ML VIAL IVPUSH PRN ×2 (01:14→10:40)
[2023-01-11 07:40] LABS: HEMATOCRIT 27.6 % (32.4-45.2); HEMOGLOBIN 9.4 GM/dL (10.7-15.3); MCH 28.8 pg (25.7-33.7); MEAN CELL VOLUME 84.7 fl (80-96); PLATELET COUNT 201 10^3/uL (134-434); RBC 3.26 M/mm3 (3.60-5.2); RDW 16.8 % (11.6-15.6); WHITE BLOOD COUNT 8.4 K/mm3 (4.0-10.0)
[2023-01-11 14:42] VITALS: BP 146/78; PULSE 67; TEMP 98.1
== END 2023-01-11 14:52 | disposition home or self-care (01) ==
LOC: JER 23:23 → JERBED 01-09 08:00 → J8W 01-09 10:32
PROVIDERS: ADMIT Family Medicine; ATTEND Family Medicine
PROC: 3E033NZ Introduction of Analgesics, Hypnotics, Sedatives into Peripheral Vein, Percutaneous Approach (ICD-10-PCS; principal; 2023-01-09)
PROC: 3E0337Z Introduction of Electrolytic and Water Balance Substance into Peripheral Vein, Percutaneous Approach (ICD-10-PCS; 2023-01-09)
DX: O03.9 Complete or unspecified spontaneous abortion without complication (principal); D64.9 Anemia, unspecified; F17.210 Nicotine dependence, cigarettes, uncomplicated; R22.42 Localized swelling, mass and lump, left lower limb; Z88.6 Allergy status to analgesic agent; Z86.19 Personal history of other infectious and parasitic diseases; Z91.010 Allergy to peanuts; Z91.018 Allergy to other foods; M79.7 Fibromyalgia
CPT/HCPCS: 0241U-QW; 36415; 36430; 76830-TC; 80053; 83540; 83550; 84702; 85025; 85027; 85610; 85730; 86780; 86850; 86900; 86901; 86922; 87389; 87491; 87591; 93005; 93010; 96374; 96375; 96376; 99285-25; G0378; P9058